=== PATIENT | female | born 1990 | race Two or more races ===

== ENCOUNTER 2024-06-13 11:35 | Outpatient (CLI) | payer OTHER ==
[~2024-06-13] VITALS: Ht 170.2 cm; Wt 120.2 kg
[~2024-06-13 11:35] MED LIST: ONDANSETRON ODT8 MG PO; VISTARIL25 MG PO
[2024-06-13] MEDS ORDERED: [UNRECOGNIZED DRUG - OTHER] (11:43)
[2024-06-13] MEDS ORDERED: PRENATAL TABLE1 EAC4 PO (11:43)
[2024-06-13 13:17] LABS: HEMATOCRIT 30.8 % (36.0-45.00); HEMOGLOBIN 10.7 g/dL (12.0-15.00); MEAN CORPUSCULAR HEMOGLOBIN 29.6 pg (27.00-32.0); MEAN CORPUSCULAR HGB CONC 34.8 g/dl (32.0-36.0); PLATELET COUNT 317 K/uL (150-450); RED BLOOD COUNT 3.63 M/uL (4.00-6.00); RED CELL DISTRIBUTION WIDTH 12.7 % (11.5-14.5)
[2024-06-13 13:52] LABS: ALBUMIN 2.6 gm/dL (3.4-5.0); BILIRUBIN TOTAL 0.22 mg/dL (0.3-1.2); CALCIUM 8.8 mg/dL (8.5-10.1); CREATININE SERUM 0.46 mg/dL (0.55-1.02); GFR 155.5; GLOBULINA 3.7 G/DL (2.4-3.5); POTASSIUM 3.77 mEq/L (3.5-5.1); TOTAL PROTEIN 6.3 gm/dL (6.4-8.2)
[2024-06-13] MEDS ORDERED: ACETAMINOPHEN 500 MG GEL..CAP PO STA (15:36)
== END 2024-06-13 17:01 | disposition home or self-care (01) ==
LOC: OBS/DEL 11:35
PROVIDERS: ATTEND Specialist
DX: O26.892 Other specified pregnancy related conditions, second trimester (principal); O99.342 Other mental disorders complicating pregnancy, second trimester; Z3A.24 24 weeks gestation of pregnancy

== ENCOUNTER 2024-06-15 14:04 | Outpatient (CLI) | payer OTHER ==
[~2024-06-15 14:04] MED LIST changes: +PRENATAL TABLE1 EAC4 PO; +[UNRECOGNIZED DRUG - OTHER]
== END 2024-06-15 14:05 | disposition home or self-care (01) ==
LOC: PRENATAL 14:04
PROVIDERS: ATTEND Obstetrics & Gynecology Maternal & Fetal Medicine
DX: O35.9XX0 Maternal care for (suspected) fetal abnormality and damage, unspecified, not applicable or unspecified (principal); O35.3XX0 Maternal care for (suspected) damage to fetus from viral disease in mother, not applicable or unspecified; O44.02 Complete placenta previa NOS or without hemorrhage, second trimester; Z3A.24 24 weeks gestation of pregnancy

== ENCOUNTER 2024-08-07 15:58 | Outpatient (CLI) | payer OTHER ==
[~2024-08-07] VITALS: Ht 170.2 cm; Wt 118.8 kg
[2024-08-07 15:20] VITALS: BP 100/61
[2024-08-07] MEDS ORDERED: RINGERS SOLUTION,LACTATED 1,000 ML IV SCH (16:45)
[2024-08-07 17:32] LABS: HEMOGLOBIN 11.2 g/dL (12.0-15.00); MEAN CELL VOLUME 82.8 fL (80.00-100.00); PLATELET COUNT 345 K/uL (150-450); RED BLOOD COUNT 3.87 M/uL (4.00-6.00); RED CELL DISTRIBUTION WIDTH 12.8 % (11.5-14.5); URINE APPEARANCE Cloudy; URINE BILIRRUBIN Negative (NEGATIVE); URINE BLOOD Negative; URINE COLOR Yellow; URINE GLUCOSE Negative (NEGATIVE); URINE KETONE Negative (NEGATIVE); URINE LEUKOCYTE Large; URINE NITRATE Negative; URINE PROTEIN Negative (NEGATIVE); URINE UROBILINOGEN 0.2 E.U./dl
[2024-08-07 17:33] LABS: URINE BACTERIA 3226.6 uL (0.0-1933); URINE EPITHELIAL CELLS 23.8 uL (0.0-38.8); URINE WBC 462.4 uL (0.0-23.2)
[2024-08-07 17:40] LABS: URINE RBC 1.6 uL (0.0-20.8)
[2024-08-07 17:53] LABS: CALCIUM 8.7 mg/dL (8.5-10.1); CREATININE SERUM 0.44 mg/dL (0.55-1.02); GFR 163.68; POTASSIUM 3.85 mEq/L (3.5-5.1)
[2024-08-07 19:06] VITALS: BP 104/67
[2024-08-07 23:17] VITALS: BP 118/74
[2024-08-08 04:00] VITALS: BP 107/66
[2024-08-08 06:31] VITALS: BP 109/64; O2SAT 99
[2024-08-08] MEDS ORDERED: COLACE100 MG PO (07:52)
[2024-08-08 09:10] VITALS: BP 119/78
== END 2024-08-08 10:13 | disposition home or self-care (01) ==
LOC: OBS/DEL 15:58
PROVIDERS: Obstetrics & Gynecology; ATTEND Specialist
DX: O26.893 Other specified pregnancy related conditions, third trimester (principal); K59.09 Other constipation; Z3A.32 32 weeks gestation of pregnancy

== ENCOUNTER 2024-08-22 14:10 | Emergency (ER) | payer OTHER ==
[~2024-08-22] VITALS: Ht 170.2 cm; Wt 120.7 kg
[~2024-08-22 14:10] MED LIST changes: +COLACE100 MG PO
[2024-08-22] MEDS ORDERED: hydrOXYzine PAMOATE 50 MG CAPSULE PO STA (15:41)
== END 2024-08-22 15:54 | disposition home or self-care (01) ==
LOC: ER 14:12
DX: O26.893 Other specified pregnancy related conditions, third trimester (principal); Z3A.34 34 weeks gestation of pregnancy; F41.1 Generalized anxiety disorder; M62.838 Other muscle spasm

== ENCOUNTER 2024-09-07 09:58 | Inpatient (IN) | payer OTHER ==
[~2024-09-07] VITALS: Ht 170.2 cm; Wt 125.6 kg
[2024-09-14 11:48] LABS: HEMATOCRIT 32.2 % (36.0-45.00); HEMOGLOBIN 10.9 g/dL (12.0-15.00); MEAN CELL VOLUME 82.4 fL (80.00-100.00); MEAN CORPUSCULAR HEMOGLOBIN 27.9 pg (27.00-32.0); MEAN CORPUSCULAR HGB CONC 33.9 g/dl (32.0-36.0); PLATELET COUNT 389 K/uL (150-450); RED BLOOD COUNT 3.91 M/uL (4.00-6.00); RED CELL DISTRIBUTION WIDTH 13.3 % (11.5-14.5)
[2024-09-14 12:03] LABS: PH,URINE 5.5 (5.0-8.0); URINE APPEARANCE Cloudy; URINE BILIRRUBIN Negative (NEGATIVE); URINE BLOOD Negative; URINE COLOR Dark Yellow; URINE GLUCOSE Negative (NEGATIVE); URINE KETONE Trace (NEGATIVE); URINE LEUKOCYTE Moderate; URINE NITRATE Negative; URINE PROTEIN Trace (NEGATIVE); URINE UROBILINOGEN 0.2 E.U./dl
[2024-09-14 12:07] LABS: URINE BACTERIA 1477.8 uL (0.0-1933); URINE RBC 2.1 uL (0.0-20.8); URINE WBC 183.6 uL (0.0-23.2)
[2024-09-14 12:28] LABS: INR 0.94; PARTIAL THROMBOPLASTIN TIME 27.3 SECONDS (22.0-34.0); PROTHROMBIN TIME 10.3 SECONDS (9.0-11.5)
[2024-09-14 12:36] LABS: ALBUMIN 2.4 gm/dL (3.4-5.0); BILIRUBIN TOTAL 0.35 mg/dL (0.3-1.2); CREATININE SERUM 0.56 mg/dL (0.55-1.02); GFR 123.92; GLOBULINA 4.6 G/DL (2.4-3.5); POTASSIUM 4.23 mEq/L (3.5-5.1)
[2024-09-14 12:43] LABS: URINE CAST 0.76 uL (0.0-1.40)
[2024-09-14 12:52] LABS: URINE TRICHOMONAS MANY
[2024-09-22 07:34] VITALS: BP 97/64
[2024-09-22] MEDS ORDERED: MEPERIDINE HCL/PF 50 MG/ML VIAL IM PRN (12:00)
[2024-09-22] MEDS ORDERED: PROMETHAZINE HCL 50 MG/ML AMPUL IM PRN (12:00)
[2024-09-22] MEDS ORDERED: MORPHINE SULFATE 4 MG/ML VIAL IV ONE ×2 (12:35→13:05)
[2024-09-22] MEDS ORDERED: CEFAZOLIN SODIUM 1,000 MG VIAL IV SCH (14:00)
[2024-09-22] MEDS ORDERED: MEPERIDINE HCL 25 MG/ML AMPUL IV ONE (14:20)
[2024-09-22] MEDS ORDERED: MEPERIDINE HCL 50 MG/ML AMPUL IM ONE (15:30)
[2024-09-22 16:39] VITALS: BP 119/63
[2024-09-22] MEDS ORDERED: OxyCODONE HCL/APAP UD (PERCOCET) PO PRN (20:15)
[2024-09-23 01:40] LABS: HEMATOCRIT 28.8 % (36.0-45.00); HEMOGLOBIN 9.7 g/dL (12.0-15.00); MEAN CELL VOLUME 81.4 fL (80.00-100.00); MEAN CORPUSCULAR HEMOGLOBIN 27.3 pg (27.00-32.0); MEAN CORPUSCULAR HGB CONC 33.6 g/dl (32.0-36.0); PLATELET COUNT 295 K/uL (150-450); RED BLOOD COUNT 3.54 M/uL (4.00-6.00)
[2024-09-23 02:13] VITALS: BP 113/73
[2024-09-23 08:00] VITALS: BP 99/68
[2024-09-23 16:00] VITALS: BP 99/65
[2024-09-24 01:00] VITALS: BP 121/63
[2024-09-24 08:00] VITALS: BP 126/82
[2024-09-24 15:09] VITALS: BP 127/86
[2024-09-25 00:01] VITALS: BP 108/73
[2024-09-25] MEDS ORDERED: IBUPROFEN800 MG PO (07:42)
[2024-09-25 08:32] VITALS: BP 109/60
[2024-09-25 08:33] VITALS: BP 109/60
== END 2024-09-25 10:30 | disposition home or self-care (01) | DRG 788 ==
LOC: O/R 09-22 06:42 → OB/GYN 09-22 06:42
PROVIDERS: ADMIT Specialist; ATTEND Specialist
PROC: 4A1HXCZ Monitoring of Products of Conception, Cardiac Rate, External Approach (ICD-10-PCS; 2024-09-22)
PROC: 10D00Z1 Extraction of Products of Conception, Low, Open Approach (ICD-10-PCS; principal; 2024-09-22 11:00)
DX: O32.1XX0 Maternal care for breech presentation, not applicable or unspecified (principal); Z3A.39 39 weeks gestation of pregnancy; Z37.0 Single live birth; Z20.822 Contact with and (suspected) exposure to COVID-19